=== PATIENT | female | born 2005 | race Caucasian/White ===

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

== ENCOUNTER 2024-01-14 20:24 | Emergency (ER) | payer OTHER, SELFPAY ==
[2024-01-14] VITALS (7 sets, daily range): BP systolic 122–135; BP diastolic 75–87; PULSE 70–89; RESP 14–18; TEMP 37.4; O2SAT 99–100; BMI 23.6
--- NOTE | 2024-01-14 20:46 | CRLHL7_ITS ---
For Patients: As a result of the Century Cures Act, medical imaging exams and procedure reports are released immediately into your electronic medical record. You may view this report before your referring provider. If you have questions, please contact your health care provider. INDICATION: Abdominal pain. COMPARISON: Pelvic ultrasound 12/10/2023 TECHNIQUE: CT of the abdomen and pelvis with intravenous contrast. Multiplanar axial, coronal, and sagittal reformats were reconstructed. Contrast: 79 mL Isovue 370. FINDINGS: Lung bases: Normal. Liver: Normal. No mass. Gallbladder and bile ducts: Normal gallbladder. No bile duct dilation. Pancreas: Normal. Spleen: Normal. Adrenal glands: Normal. Kidneys: Normal parenchyma. No cyst or solid mass. No calculi. No urinary tract dilation. Urinary bladder: Normal. Pelvis: Physiologic appearance of the uterus and both ovaries. Vessels: Normal. Bowel: The stomach is decompressed. No dilated or inflamed small bowel. Normal appendix. Moderate stool scattered throughout the colon. Gaseous dilated transverse colon measures up to 6 centimeters. Normal wall thickness with preserved haustral markings. Appendix. Mild stool burden. Lymph nodes: Enlarged right inguinal lymph node measures 12 x 13 millimeters in short axis. The lymph node is homogeneously enhancing without necrosis. Few other mildly prominent right inguinal nodes. Left inguinal nodes appear normal. No enlarged lymph nodes in the abdomen or pelvis. Peritoneum: No ascites. Abdominal wall: No hernia. Bones: No fractures. No focal worrisome bone lesions. IMPRESSION: 1. Mildly enlarged right inguinal lymph nodes are nonspecific but could be reactive. No obvious source of infection or inflammation. 2. Gaseous distention of the colon with a moderate stool burden. Please note that all CT scans at this facility use dose modulation, iterative reconstruction, and/or weight-based dosing when appropriate to reduce radiation dose to as low as reasonably achievable. Dictated by Shani Gardner MD @ 01/14/2024 9:39:48 PM (Electronically Signed)
--- NOTE | 2024-01-14 20:47 | ED_ITS ---
HPI - Abdominal Pain General Chief Complaint: Abdominal Pain Stated Complaint: L side abdominal pain from AM to now Time Seen by Provider: 01/14/24 20:27 History of Present Illness HPI narrative: This 18-year-old female comes in with her mother because of abdominal pain that began last night. She states that the pain is constant but has crampy episodes on top of it. She localizes the pain more in the left abdomen but feels pain throughout her abdomen. She has had some nausea but no vomiting. She denies any constipation or dysuria symptoms. She has not had any fevers. She states that the pain is worse with movement and going over the bumps on the way here was very painful. Related Data Home Medications ?Medication ?Instructions ?Recorded ?Confirmed No Known Home Medications 02/11/22 01/14/24 Allergies Allergy/AdvReac Type Severity Reaction Status Date / Time No Known Drug Allergies Allergy Verified 01/14/24 21:22 Review of Systems Status of ROS Reports: 10 or more systems reviewed and unremarkable except as noted in History and below Narrative Constitutional: No fevers, no weight gain or loss. Eyes: No discharge. No vision changes. HENT: No congestion, no sore throat, no ear pain. Cardiovascular: No chest pain, no palpitations. Respiratory: No shortness of breath, no wheezes, no cough. Gastrointestinal: No vomiting, no diarrhea. Abdominal pain as described above. Genitourinary: No dysuria, no hematuria. Musculoskeletal: Normal range of motion. Skin: No rashes, no pruritis. Neurological: No dizziness, weakness, sensory change, speech change. Endo/Heme/Allergies: No bruising or bleeding. No polydipsia. Pysch: no suicidality, no anxiety, no insomnia. All other systems reviewed and are negative. [facility] Social History Smoking Status: Never smoker Do you use any of these nicotine containing products: None How often do you have a drink containing alcohol: never AUDIT-C Alcohol total score: 0 Non-prescribed substance use: denies use Exam Narrative: Exam Narrative: Constitutional: Well-developed, well-nourished, no acute distress. HEENT: Normocephalic, atraumatic. Neck: Normal range of motion. Nontender. Supple. Heart: Regular. No murmurs. Normal rate. Intact distal pulses. Lungs: Clear to auscultation. No chest discomfort. No wheezes, rhonchi, or rales. Abdomen: Normal bowel sounds. Tenderness throughout the abdomen with rebound tenderness present. She does have tenderness at McBurney's point. Genitalia: Deferred. Back: No midline tenderness. Normal range of motion. Extremities: Normal range of motion. No injury. Skin: Intact. No rash. Warm. No erythema or pallor. Neurologic: No altered sensation. No weakness. Alert and oriented. Psychiatric: No suicidality. No anxiety or depression. No insomnia. Nursing notes and vitals signs are reviewed. Const: Vital Signs, click to edit/add: Vital Signs - 24 hr 01/14/24 20:29 Temperature 99.4 F Pulse Rate [Pulse Oximeter] 89 Respiratory Rate 18 Blood Pressure [Ri ght Upper Arm] 135/87 Pulse Oximetry 99 Oxygen Delivery Me thod Room Air Course Vital Signs Vital signs: Initial Vital Signs Temperature 99.4 F 01/14/24 20:29 Temperature Source Temporal Artery Scan 01/14/24 20:29 Pulse Rate 89 01/14/24 20:29 Respiratory Rate 18 01/14/24 20:29 Blood Pressure 135/87 01/14/24 20:29 Blood Pressure Mean 103 01/14/24 20:29 Blood Pressure Position Sitting 01/14/24 20:29 Pulse Oximetry 99 01/14/24 20:29 Oxygen Delivery Method Room Air 01/14/24 20:29 Vital Signs Temperature 99.4 F 01/14/24 20:29 Pulse Rate 89 01/14/24 20:29 Respiratory Rate 18 01/14/24 20:29 Blood Pressure 135/87 01/14/24 20:29 Pulse Oximetry 99 01/14/24 20:29 Oxygen Delivery Method Room Air 01/14/24 20:29 Temperature 99.4 F 01/14/24 20:29 Pulse Rate 89 01/14/24 20:29 Respiratory Rate 18 01/14/24 20:29 Blood Pressure 135/87 01/14/24 20:29 Pulse Oximetry 99 01/14/24 20:29 Oxygen Delivery Method Room Air 01/14/24 20:29 MDM - Abdominal Pain MDM Narrative Medical decision making narrative: This patient comes in with abdominal pain as described above. She arrives with normal vital signs but is rather tender and seems to have some rebound tenderness. I did recommend CT imaging with IV contrast. This returns with no acute findings except for gaseous distension of her bowels. This most likely is causing her symptoms today. Her lab results are all returning with normal findings. I did describe various [id number]-[id number] medicines that can be taken by mouth and also described how to administer an enema for more rapid relief potentially. Patient did receive an IV dose of Dilaudid 0.5 mg and her pain is much better. She is okay to be discharged home. Lab Data Labs: Lab Results 01/14/24 Range/Units 20:55 WBC 9.68 (4.50-11.00) K/uL RBC 4.78 (4.00-5.20) m/uL Hgb 13.1 (12.0-16.0) gm/dL Hct 40.5 (33.0-51.0) % MCV 85 (80-100) fL MCH 27 (26-34) pg MCHC 32 (32-36) gm/dL RDW Coeff of Angelia 12.2 (11.5-15.5) % Plt Count 477 H (140-440) K/uL Neut % (Auto) 71.3 (42.0-72.0) % Lymph % (Auto) 19.6 L (20-44) % Sheridan % (Auto) 6.5 (0.0-11.0) % Eos % (Auto) 2.1 (0.0-7.0) % Baso % (Auto) 0.4 (0.0-3.0) % Neut # (Auto) 6.90 (1.7-7.0) K/uL Lymph # (Auto) 1.90 (0.90-2.90) K/uL Sheridan # (Auto) 0.60 (0.00-0.90) K/UL Eos # (Auto) 0.20 (0.00-0.50) K/uL Baso # (Auto) 0.04 (0.00-0.30) K/uL Abs Immat Gran (auto) 0.01 (0.00-0.30) K/uL Imm/Tot Granulo (auto) 0.1 % Sodium 138 (135-149) mmol/L Potassium 4.1 (3.6-5.1) mmol/L Chloride 101 (96-114) mmol/L Carbon Dioxide 27 (20-32) mmol/L Anion Gap 10 (7-15) mEq/L BUN 15 (5-24) mg/dL Creatinine 0.7 (0.6-1.2) mg/dL Estimated Creat Clear 135.09 Estimated GFR 128 ml/min Glucose 97 (60-115) mg/dL Calcium 10.1 (8.7-10.8) mg/dL HCG, Qual Negative (Negative) Discharge Plan Discharge Clinical Impression: Abdominal pain Patient Disposition: Home w/ Parent or Adult Condition: Improved Additional Instructions: Use [id number]-jel-[id number] medicines as needed and directed. Follow up with MD or return if worsening symptoms happen. Prescriptions: No Action No Known Home Medications Follow Up/Referrals: Suzi Anderson MD [Primary Care Provider] - Stand Alone Forms: [employer] Info Instructions
[2024-01-14] MEDS: HYDROmorphone 0.5 mg/0.5 ml inj IVP (20:55)
[2024-01-14 21:21] LABS: Basophils Absolute Auto 0.04 K/uL (0.00-0.30); Basophils Percent Auto 0.4 % (0.0-3.0); Eosinophils Percent Auto 2.1 % (0.0-7.0); Hematocrit 40.5 % (33.0-51.0); Hemoglobin* 13.1 gm/dL (12.0-16.0); Immature Granulocytes Abs Auto 0.01 K/uL (0.00-0.30); Immature Granulocytes Pct Auto 0.1 %; Lymphocytes Percent Auto 19.6 % (20-44); Mean Corpuscular HGB Conc 32 gm/dL (32-36); Mean Corpuscular Hemoglobin 27 pg (26-34); Mean Corpuscular Volume 85 fL (80-100); Monocytes Percent Auto 6.5 % (0.0-11.0); Neutrophils Percent Auto 71.3 % (42.0-72.0); Platelet Count* 477 K/uL (140-440); RDW Coefficient of Variation % 12.2 % (11.5-15.5); Red Blood Count 4.78 m/uL (4.00-5.20); White Blood Count* 9.68 K/uL (4.50-11.00)
[2024-01-14 21:27] LABS: Slide Review Reflex No
[2024-01-14 21:32] LABS: Chloride* 101 mmol/L (96-114)
[2024-01-14 21:33] LABS: Potassium* 4.1 mmol/L (3.6-5.1); Sodium* 138 mmol/L (135-149)
[2024-01-14 21:35] LABS: Creatinine* 0.7 mg/dL (0.6-1.2); Est. Creatinine Clearance* 135.09; Estimated Glomerular Filt Rate 128 ml/min
[2024-01-14 21:36] LABS: Anion Gap 10 mEq/L (7-15); Blood Urea Nitrogen* 15 mg/dL (5-24); Calcium* 10.1 mg/dL (8.7-10.8); Carbon Dioxide* 27 mmol/L (20-32); Glucose* 97 mg/dL (60-115)
[2024-01-14 21:38] LABS: HCG Qualitative Serum* Negative (Negative)
== END 2024-01-14 22:17 | disposition home or self-care (01) ==
PROVIDERS: Emergency Provider Emergency Medicine Emergency Medical Services; PCP Pediatrics
DX: R10.9 Unspecified abdominal pain (principal)
CPT/HCPCS: 36415; 74177; 80048; 84703; 85025; 96374; 99283; 99284; J1170; Q9967